=== PATIENT | female | born 1995 | race Two or more races ===

== ENCOUNTER 2022-04-23 08:59 | Emergency (ER) | payer OTHER ==
[~2022-04-23] VITALS: Ht 162.6 cm; Wt 88.0 kg
[2022-04-23 09:16] VITALS: BP 143/92
[2022-04-23] MEDS ORDERED: HYDROcodone-ACET 5/325MG TAB PO ONE (10:00)
[2022-04-23] MEDS ORDERED: IBU600T PO (11:53)
[2022-04-23 14:53] LABS: Urine Bacteria FEW /hpf (None Seen); Urine Blood 3+ /uL (Negative); Urine Specific Gravity 1.002 (1.001-1.035); Urine WBC 1 /hpf (0 - 5)
== END 2022-04-23 12:22 | disposition home or self-care (01) ==
LOC: ER 08:59 → EDBD 08:59 → ER 12:12
DX: R07.81 Pleurodynia (principal); M25.511 Pain in right shoulder; M79.18 Myalgia, other site; Y08.89XA Assault by other specified means, initial encounter; Y93.89 Activity, other specified; Y92.89 Other specified places as the place of occurrence of the external cause; Y99.8 Other external cause status
CPT/HCPCS: 71111; 72170; 73030; 81001